=== PATIENT | female | born 1950 | race Caucasian/White ===

== ENCOUNTER → 2016-03-08 | Outpatient (CLI) | payer OTHER ==
[~2016-03-08] MED LIST: ASCO1CAP3 PO; ASPI-232 PO; B-COTAB53 PO; BUPRTAB51 PO; CALC-23 PO; CHOL1CAP57 PO; METO25TA56 PO; MULTTAB PO; OPTIRAY 320 IV PRN; VITA1TAB4 PO
--- NOTE | 2016-03-08 12:59 | DIAGNOSTIC IMAGING REPORT ---
CHEST CT WITH CONTRAST CT DOSE: 236.03 mGy.cm HISTORY: Follow-up paraspinal mass resection. 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 COMPARISON: Chest CT 10/16/2013. FINDINGS: There are surgical clips seen within the left mid to lower thoracic paraspinal location. This is consistent with the patient's history of a resected paraspinal mass. No evidence for recurrent paraspinal lesions. No mediastinal or hilar lymphadenopathy. Small hiatus hernia. The liver and adrenal glands are unremarkable. A few scattered hypodense lesions are again identified within the spleen. Dominant lesion within the posterior aspect of the spleen has slightly decreased in size. This currently measures 8 mm, previous measuring 10 mm. There is a 9 mm hypodense lesion within the anterior spleen has slightly increased in size. There is a new 6 mm hypodense lesion within the splenic dome. These are too small to characterize but favor benign lesions. No pleural or pericardial effusions. The mediastinal vascular structures are within normal limits. No suspicious lytic or blastic osseous lesions. No pneumothorax. The lungs are essentially clear. IMPRESSION: 1. No evidence for recurrent paraspinal mass. 2. Subcentimeter waxing and waning splenic hypodense lesions as described above. These are technically too small to characterize but likely benign. 3. Small hiatal hernia. Electronically signed by: Brandon Garrett M.D. 03/08/2016 12:57 PM
== END | disposition home or self-care (01) ==
LOC: C.CTS 11:51
PROVIDERS: ATTEND Surgery
DX: D36.10 Benign neoplasm of peripheral nerves and autonomic nervous system, unspecified (principal)

== ENCOUNTER → 2016-11-23 | Outpatient (CLI) | payer OTHER ==
[~2016-11-23] MED LIST changes: -OPTIRAY 320 IV PRN
--- NOTE | 2016-11-24 07:44 | MAMMOGRAPHY REPORT ---
BILATERAL DIGITAL SCREENING MAMMOGRAM TOMOSYNTHESIS WITH CAD: 11/23/2016 TECHNIQUE: Breast tomosynthesis in addition to standard 2D mammography was performed. Current study was also evaluated with a Computer Aided Detection (CAD) system. COMPARISON: Comparison is made to exams dated: 11/22/2015 mammogram, 11/19/2014 mammogram, 10/16/2013 m ammogram, 10/22/2012 mammogram, 10/14/2012 mammogram, and 09/04/2011 mammogram - [facility] nter. BREAST COMPOSITION: There are scattered areas of fibroglandular density in both breasts. FINDINGS: No suspicious masses, calcifications, or areas of architectural distortion are noted in ei ther breast. There has been no significant interval change compared to prior exams. A biopsy marker clip is again noted in the left lateral breast. Benign-appearing left breast calcifications are stab le. IMPRESSION: ACR BI-RADS CATEGORY 2: BENIGN There is no mammographic evidence of malignancy. A 1 year screening mammogram is recommended. The pa tient will receive written notification of the results. Approximately 10% of breast cancers are not detected with mammography. A negative mammographic report should not delay biopsy if a clinically suggestive mass is present. Gisela Gamez M.D. /:11/23/2016 16:46:52 [employer]: Edel RICHMOND)(M), [facility] letter sent: Normal 1/2 BI-RADS Code: ACR BI-RADS Category 2: Benign
== END | disposition home or self-care (01) ==
LOC: C.MAMM 11:05
PROVIDERS: ATTEND Obstetrics & Gynecology
DX: Z12.31 Encounter for screening mammogram for malignant neoplasm of breast (principal)

== ENCOUNTER 2021-04-07 13:15 | Observation (INO) ==
[2021-04-07] MEDS ORDERED: ASPIRIN CHEW 324 MG PO STA (13:34)
[2021-04-07] MEDS ORDERED: SODIUM CHLORIDE 0.9% 1000ML 1,000 ML IV STA (13:34)
[2021-04-07 13:46] LABS: Basophils # (auto) 0.02 K/uL (0-0.2); Basophils % (auto) 0.3 %; Eosinophils # (auto) 0.15 K/uL (0-0.5); Eosinophils % (auto) 2.2 %; Hematocrit (blood only) 42.2 % (37-47); Immature Granulocytes # (auto) 0.02 K/uL (0.00-0.02); Immature Granulocytes % (auto) 0.3 %; Lymphocytes # (auto) 1.28 K/uL (1.2-3.4); Lymphocytes % (auto) 18.7 %; Mean Corpuscular Hemoglobin 28.2 pg (25-34); Mean Corpuscular Hgb Conc 33.2 g/dL (32-36); Mean Corpuscular Volume 84.9 fL (80-100); Mean Platelet Volume 9.4 fL (7.4-10.4); Monocytes % (auto) 5.8 %; Neutrophils # (auto) 4.99 K/uL (1.4-6.5); Neutrophils % (auto) 72.7 %; Platelet Count 259 K/uL (130-400); RDW Coefficient of Variation 12.7 % (11.5-14.5); RDW Standard Deviation 38.7 fL (36.4-46.3); Red Blood Count 4.97 M/uL (4.2-5.4); White Blood Count 6.86 K/uL (4.8-10.8)
--- NOTE | 2021-04-07 13:53 | Emergency Department Note ---
History of Present Illness General Chief Complaint: Arrhythmia/Palpitations Stated Complaint: PALIPTATIONS, DIZZY Time Seen by Provider: 04/07/21 13:28 History of Present Illness Provider Complaint: + palpitations Onset (ago): 1 hour(s) Duration: + Intermittent Severity: mild Context: + occurred during exertion Associated symptoms: + shortness of breath and + near-syncope; no syncope, no nausea, no vomiting, no anxiety, no diaphoresis, no cough, no paresthesias or no muscle cramps Home Medications Medication Instructions Recorded Confirmed Type bupropion HCl 150 mg 24 hr tablet, mg PO .TAKE 1 TABLET DAILY. 05/12/20 05/20/20 History extended release calcium-vitamin D3-vitamin K PO 05/12/20 05/20/20 History [Viactiv] metoprolol tartrate 25 mg tablet mg PO .TAKE 1 TABLET DAILY. 05/12/20 05/20/20 H istory multivitamin [One-A-Day Essential] PO 05/12/20 05/20/20 History psyllium [Metamucil (sugar)] PO DAILY 05/20/20 05/20/20 History Allergies Allergy/AdvReac Type Severity Reaction Status Date / Time Penicillins Allergy Intermediate HIVES Verified 05/20/20 11:48 Past Med/Surg History Medical History Cyst of spleen Surgical History History of breast biopsy History of cryosurgery History of dilation and curettage History of thoracotomy Family History Mother Cancer uterine cancer Uterine cancer Grandmother (Paternal) Breast cancer Denies family history of Ovarian cancer Colorectal cancer Social History Smoking Status: Never smoker Preferred Language: Amharic Feels Safe at Home: Yes Review of Systems A total of 10 systems reviewed and were otherwise negative Physical Exam Vital Signs: Vital Signs - 24 hr 04/07/21 13:22 04/07/21 13:23 04/07/21 13:26 Temperature 36.4 C L Temperature Source Oral Pulse Rate 66 72 Pulse Rate [Apical ] 66 Pulse Rhythm Regular Pulse Rhythm [Apic al] Regular Pulse Strength [Ap ical] Normal Respiratory Rate 20 16 Respiratory Effort / Characteristics Non-Labored Sponta neous Respiratory Depth Normal Respiratory Patter n Regular Blood Pressure 144/65 H Blood Pressure [Le ft Arm] 144/65 H Blood Pressure Aiyana n 91 Blood Pressure Aiyana n [Left Arm] 91 Blood Pressure Pos ition Semi-fowlers Blood Pressure Pos ition [Left Arm] Semi-fowlers Pulse Oximetry 96 96 Oxygen Delivery Me thod Room Air Room Air Sepsis Recent Feve r Within 48 Hours No Sepsis New/Unexpla ined Change in Men magdalena Status No Sepsis Action Take n by Nursing No Action Required Physical Exam: Physical Exam GENERAL: She is oriented to person, place, and time. She appears well-developed and well-nourished. She does not appear distressed. HENT: Exam performed. -Head: Normocephalic and atraumatic. -Right Ear: External ear normal. No mastoid tenderness. -Left Ear: External ear normal. No mastoid tenderness. -Mouth/Throat: The oropharynx is clear and moist. No trismus in the jaw. No dental abscesses or uvula swelling. No oropharyngeal exudate or tonsillar abscesses. EYES: Conjunctivae and EOM are normal. Pupils are equal, round, and reactive to light. Right eye exhibits no discharge. Left eye exhibits no discharge. No scleral icterus. NECK: Normal range of motion. Neck supple. No JVD present. No spinous process tenderness present. No carotid bruit present. No rigidity. No tracheal deviation and normal range of motion present. No Brudzinski's sign and no Kernig's sign noted. CV: Normal rate, regular rhythm, normal heart sounds and intact distal pulses. There is no peripheral edema. Palpable radial pulses bue. PULM/CHEST: Effort normal and breath sounds normal. No respiratory distress. No stridor. She has no wheezes. She has no rales. -Chest Wall: She exhibits no tenderness. ABD: The abdomen is soft. Bowel sounds are normal. She has no distension. No mass is present. There is no tenderness. There is no rebound, no guarding, no Rachel's sign and no tenderness at McBurney's point. Rovsig negative MUSC/SKEL: Normal range of motion. There is no peripheral edema, tenderness or deformity. LYMPH: No cervical adenopathy. NEURO: She is alert and oriented to person, place, and time. She has normal strength. No cranial nerve deficit or sensory deficit. Coordination and gait normal. GCS eye subscore is 4. GCS verbal subscore is 5. GCS motor subscore is 6. Cerebellar tests wnl. SKIN: Skin is warm and dry. She is not diaphoretic. PSYCH: She has a normal mood and affect. Behavior is normal. Judgment and thought content normal. Course Course 1321: The patient was evaluated in room A11. A complete history and physical exam was performed Cardiac monitoring: An order was placed for continuous cardiac monitoring. The monitor shows a rate of 60 with sinus rhythm 1517: Vital signs stable. Patient reports no chest pain difficulty breathing or palpitations at this time. Labs are within normal limits with exception of a elevated D-dimer, CTA of the chest was negative. Patient was offered inpatient observation for palpitations and rule out ACS but the patient declined. Patient be discharged with follow-up PCP. DISCHARGE - Plan of care discussed with patient and questions answered. The patient was given both verbal and printed discharge instructions. The patient verbalized understanding and ability to comply. The patient is to seek outpatient follow up as noted in the discharge instructions. The patient verbalized understanding and ability to comply. The patient is discharged in stable condition. The patient was instructed to return for worsening symptoms. Administered Medications Discontinued Medications Aspirin (Aspirin Chew 324 Mg) 324 mg PO NOW STA Stop: 04/07/21 13:35 Last Admin: 04/07/21 13:41 Dose: 324 mg Documented by: [id number] Sodium Chloride (Nss 1000ml) 1,000 mls @ 999 mls/hr IV .Q1H1M STA Stop: 04/07/21 14:34 Last Admin: 04/07/21 13:41 Dose: 999 mls/hr Documented by: [id number] Ioversol (Optiray 320 125ml) 120 ml IV ONCE ONE Stop: 04/07/21 14:36 Last Admin: 04/07/21 14:36 Dose: 120 ml Documented by: [id number] Medical Decision Making Laboratory Data Result diagrams: 04/07/21 13:36 04/07/21 13:36 Lab Results 04/07/21 04/07/21 04/07/21 Range/Units 13:36 13:36 13:36 WBC 6.86 (4.8-10.8) K/uL RBC 4.97 (4.2-5.4) M/uL Hgb 14.0 (12.0-16.0) g/dL Hct 42.2 (37-47) % MCV 84.9 (80-100) fL MCH 28.2 (25-34) pg MCHC 33.2 (32-36) g/dL RDW Std Deviation 38.7 (36.4-46.3) fL RDW Coeff of Jose Daniel 12.7 (11.5-14.5) % Plt Count 259 (130-400) K/uL MPV 9.4 (7.4-10.4) fL Immature Gran % (Auto) 0.3 % Neut % (Auto) 72.7 % Lymph % (Auto) 18.7 % [place] % (Auto) 5.8 % Eos % (Auto) 2.2 % Baso % (Auto) 0.3 % Neut # (Auto) 4.99 (1.4-6.5) K/uL Lymph # (Auto) 1.28 (1.2-3.4) K/uL [place] # (Auto) 0.40 (0.11-0.59) K/uL Eos # (Auto) 0.15 (0-0.5) K/uL Baso # (Auto) 0.02 (0-0.2) K/uL Immature Gran # (Auto) 0.02 (0.00-0.02) K/uL PT 9.7 (9.0-12.0) Seconds INR 1.0 (0.9-1.1) APTT 25.5 (21.0-31.0) Seconds PTT Ratio 1.0 D-Dimer 540 H* (0-500) ug/L FEU Sodium 139 (136-145) mmol/L Potassium 3.9 (3.5-5.1) mmol/L Chloride 108 H (98-107) mmol/L Carbon Dioxide 24 (21-32) mmol/L Anion Gap 7 (3-11) BUN 25 H (6-23) mg/dl Creatinine 0.85 (0.6-1.2) mg/dl Est Cr Clr Drug Dosing 68.3 ml/min Est GFR ( Amer) 80.5 ml/min Est GFR (Non-Af Amer) 69.4 ml/min BUN/Creatinine Ratio 29.4 H (10-20) Glucose 85 (70-99(Fasting)) mg/dl Calcium 9.0 (8.5-10.1) mg/dl Troponin I < 0.03 (0-0.04) ng/ml Lipase 47 (11-82) U/L Imaging Data Radiologist's Impression: Chest X-Ray 04/07/21 13:35 XR chest 1V portable HISTORY: 70 years-old Female Chest Pain . Acute atypical chest pain with possible cardiac arrhythmia COMPARISON: Chest CT 03/08/2016, chest radiographs 08/24/2012 TECHNIQUE: Portable AP view of the chest FINDINGS: The cardiac silhouette is enlarged is enlarged. Mild chronic interstitial coarsening of the lung bases. No pneumothorax, pleural effusion, airspace consolidation or overt pulmonary edema. The bones appear grossly intact. IMPRESSION: 1. Cardiomegaly without acute process. 2. Mild chronic interstitial coarsening of the lung bases. ACT 112: Negative or not required by law. The above report was generated using voice recognition software. It may contain grammatical, syntax or spelling errors. Electronically signed by: Abdifatah Garnica M.D. 04/07/2021 2:03 PM Chest CTA 04/07/21 14:15 CT ANGIOGRAM OF THE CHEST CLINICAL HISTORY: Palpitations and dizziness. Dyspnea. COMPARISON STUDY: Chest x-ray dated 04/07/2021. Chest CT dated 03/08/2016. TECHNIQUE: Following the IV administration of 120 cc of Optiray 320, CT angiogram of the chest was performed from the upper abdomen to the thoracic inlet utilizing the pulmonary embolus protocol. Images are reviewed in the axial, sagittal, and coronal planes. 3-D MIPS images are created and assessed. IV contrast was administered without complication. A dose lowering technique was utilized adhering to the principles of ALARA. CT DOSE: 281.12 mGy.cm FINDINGS: Thyroid: Imaged portions of the thyroid gland are normal in size and attenuation. Thoracic aorta: The thoracic aorta is normal in caliber and demonstrates standard 3-vessel arch anatomy. No dissection is seen. Pulmonary vasculature: The pulmonary trunk is normal in caliber. There are no filling defects identified in main, lobar, or segmental pulmonary branches to suggest pulmonary embolus. Heart: The heart is enlarged and without pericardial effusion. Lungs and pleural spaces: Postoperative change is noted in the left paravertebral soft tissues. Evaluation of the lung parenchyma is degraded by motion artifact. The trachea and central airways are clear. There is no airspace consolidation typical for pneumonia or pleural effusion. Dependent atelectasis is seen bilaterally. Mediastinum: There is no mediastinal lymphadenopathy. Leeanne: Clear. Axillae: There is no axillary lymphadenopathy. Upper abdomen: There is a small hiatal hernia. Partially visualized upper abdominal viscera is otherwise within normal limits. Skeletal structures: The skeletal structures are osteopenic. There is a chronic appearing compression deformity of T7. There is chronic deformity of the left posterior ribs. No lytic or blastic bony lesions are seen. IMPRESSION: 1. There is no evidence of pulmonary embolus in the main, lobar, or segmental pulmonary arteries. 2. Cardiomegaly. 3. There is no airspace consolidation or pleural effusion. 4. Additional findings as above. ACT 112: Negative or not required by law. Electronically signed by: Dex Bui M.D. 04/07/2021 2:56 PM ECG Data Indication: palpitations Rate (beats per minute): 63 Rhythm: normal sinus Findings: no ST depression, no ST elevation or no prolonged QT MDM Narrative Vital signs stable. Patient reports no chest pain difficulty breathing or palpitations at this time. Labs are within normal limits with exception of a elevated D-dimer, CTA of the chest was negative. Patient was offered inpatient observation for palpitations and rule out ACS but the patient declined. Patient be discharged with follow-up PCP. DISCHARGE - Plan of care discussed with patient and questions answered. The patient was given both verbal and printed discharge instructions. The patient verbalized understanding and ability to comply. The patient is to seek outpatient follow up as noted in the discharge instructions. The patient verbalized understanding and ability to comply. The patient is discharged in stable condition. The patient was instructed to return for worsening symptoms. Impression & Plan Palpitations Discharge Plan Visit Data Chief Complaint: Arrhythmia/Palpitations Stated Complaint: PALIPTATIONS, DIZZY ED Provider: Howard Watt Discharge Problem: Palpitations Patient Disposition: Home - Self-Care Discharge Instructions Rajesh/Other Patient Handouts: ED Palpitations Forms Stand Alone Forms: [facility], Virtual Emergency Department, Important Visit Information Prescriptions Prescriptions: No Action metoprolol tartrate 25 mg tablet PO .TAKE 1 TABLET DAILY. RF: 0 bupropion HCl 150 mg tablet extended release 24 hr PO .TAKE 1 TABLET DAILY. RF: 0 calcium-vitamin D3-vitamin K PO RF: 0 multivitamin PO RF: 0 psyllium PO DAILY RF: 0 Referrals Referrals: Freda Jackson MD [Primary Care Provider] - (Follow-up in 1-7 days.)
[2021-04-07 13:56] LABS: Partial Thromboplastin Time 25.5 Seconds (21.0-31.0); Prothrombin Time 9.7 Seconds (9.0-12.0)
[2021-04-07 13:59] LABS: D Dimer 540 ug/L FEU (0-500)
--- NOTE | 2021-04-07 14:04 | XRay Report ---
XR chest 1V portable HISTORY: 70 years-old Female Chest Pain . Acute atypical chest pain with possible cardiac arrhythmia COMPARISON: Chest CT 03/08/2016, chest radiographs 08/24/2012 TECHNIQUE: Portable AP view of the chest FINDINGS: The cardiac silhouette is enlarged is enlarged. Mild chronic interstitial coarsening of the lung base s. No pneumothorax, pleural effusion, airspace consolidation or overt pulmonary edema. The bones appe ar grossly intact. IMPRESSION: 1. Cardiomegaly without acute process. 2. Mild chronic interstitial coarsening of the lung bases. ACT 112: Negative or not required by law. The above report was generated using voice recognition software. It may contain grammatical, syntax o r spelling errors. Electronically signed by: Abdifatah Garnica M.D. 04/07/2021 2:03 PM
[2021-04-07 14:10] LABS: Troponin I < 0.03 ng/ml (0-0.04)
[2021-04-07 14:16] LABS: Anion Gap 7 (3-11); BUN Creatinine Ratio 29.4 (10-20); Blood Urea Nitrogen 25 mg/dl (6-23); Carbon Dioxide 24 mmol/L (21-32); Chloride 108 mmol/L (98-107); Creatinine Clr Calc Pharmacy 68.3 ml/min; Est GFR (African American) 80.5 ml/min; Est GFR (Non-African American) 69.4 ml/min; Glucose 85 mg/dl (70-99(Fasting)); Lipase 47 U/L (11-82); Potassium 3.9 mmol/L (3.5-5.1); Sodium 139 mmol/L (136-145)
[2021-04-07] MEDS ORDERED: OPTIRAY 320 125ml IV ONE (14:35)
--- NOTE | 2021-04-07 14:57 | CT Scan Report ---
CT ANGIOGRAM OF THE CHEST CLINICAL HISTORY: Palpitations and dizziness. Dyspnea. COMPARISON STUDY: Chest x-ray dated 04/07/2021. Chest CT dated 03/08/2016. TECHNIQUE: Following the IV administration of 120 cc of Optiray 320, CT angiogram of the chest was pe rformed from the upper abdomen to the thoracic inlet utilizing the pulmonary embolus protocol. Images are reviewed in the axial, sagittal, and coronal planes. 3-D MIPS images are created and assessed. I V contrast was administered without complication. A dose lowering technique was utilized adhering to the principles of ALARA. CT DOSE: 281.12 mGy.cm FINDINGS: Thyroid: Imaged portions of the thyroid gland are normal in size and attenuation. Thoracic aorta: The thoracic aorta is normal in caliber and demonstrates standard 3-vessel arch anato my. No dissection is seen. Pulmonary vasculature: The pulmonary trunk is normal in caliber. There are no filling defects identif ied in main, lobar, or segmental pulmonary branches to suggest pulmonary embolus. Heart: The heart is enlarged and without pericardial effusion. Lungs and pleural spaces: Postoperative change is noted in the left paravertebral soft tissues. Evalu ation of the lung parenchyma is degraded by motion artifact. The trachea and central airways are katiana r. There is no airspace consolidation typical for pneumonia or pleural effusion. Dependent atelectasi s is seen bilaterally. Mediastinum: There is no mediastinal lymphadenopathy. Leeanne: Clear. Axillae: There is no axillary lymphadenopathy. Upper abdomen: There is a small hiatal hernia. Partially visualized upper abdominal viscera is otherw ise within normal limits. Skeletal structures: The skeletal structures are osteopenic. There is a chronic appearing compression deformity of T7. There is chronic deformity of the left posterior ribs. No lytic or blastic bony les ions are seen. IMPRESSION: 1. There is no evidence of pulmonary embolus in the main, lobar, or segmental pulmonary arteries. 2. Cardiomegaly. 3. There is no airspace consolidation or pleural effusion. 4. Additional findings as above. ACT 112: Negative or not required by law. Electronically signed by: Dex Bui M.D. 04/07/2021 2:56 PM
[2021-04-07] MEDS ORDERED: NITROGLYCERIN SL 0.4 MG/TAB TAB SL STA ×2 (16:04→16:50)
[2021-04-07] MEDS ORDERED: SODIUM CHLORIDE 0.9% 1000ML 1,000 ML IV SCH (16:15)
[2021-04-07] MEDS ORDERED: STAT IV Infusion **Titration per Protocol STA (16:17)
[2021-04-07] MEDS ORDERED: dilTIAZem HCL 125 MG in DEXTROSE 5% 100 ML IV SCH (16:30)
--- NOTE | 2021-04-07 16:42 | History & Physical Report ---
Date of Service April 07, 2021 Assessment & Plan (1) Atrial fibrillation with RVR: Plan: TSH and magnesium level pending Trend troponins TTE [id number] 2 -recommend anticoagulation with Eliquis 5 mg p.o. twice daily Continue metoprolol tartrate will increase dose of to 25 mg every 6 hourly and try to wean off diltiazem drip. Admission and Anticipated Discharge Date Admission Date: April 07, 2021 History of Present Illness Chief Complaint: Palpitations Primary Care Provider: Freda Jackson MD Xochitl Dill is a 70 year old female who presents to the ER with palpitations. She reports 1 hour of intermittent palpitations with associated dizziness, chest discomfort but not pain and shortness of breath. She was initially asymptomatic while in the ER but as she was being discharged she started having chest discomfort again and she was given SL nitroglycerin and referred to medicine for chest pain rule out [place]. While waiting to be seen she developed paroxysmal atrial fibrillation on the monitor with a rate of 140 and was started on a diltiazem IV drip @ 5mg/hr. She took her home 25mg PO of metoprolol earlier today. She takes metoprolol for a history of palpitations but no known atrial fibrillation. She is currently having mild symptoms of palpitations, chest discomfort despite the majority of her rhythm in NSR. Allergies Allergy/AdvReac Type Severity Reaction Status Date / Time Penicillins Allergy Intermediate HIVES Verified 04/07/21 17:36 Home Medications Medication Instructions Recorded Confirmed Type apple cider vinegar 300 mg tablet 0 mg PO DAILY 04/07/21 04/07/21 History bupropion HCl 150 mg 24 hr tablet, 150 mg PO DAILY 04/07/21 04/07/21 History extended release calcium-vitamin D3-vitamin K 500 1 tab PO DAILY 04/07/21 04/07/21 History mg-100 unit-40 mcg chewable tablet metoprolol tartrate 25 mg tablet 25 mg PO DAILY #20 tab 04/07/21 Rx multivitamin 1 tab PO DAILY 04/07/21 04/07/21 History peppermint oil 90 mg 90 mg PO DAILY 04/07/21 04/07/21 History capsule,delayed,extended release (IBgard) Past Med/Surg History Medical History Cyst of spleen Surgical History History of breast biopsy History of cryosurgery History of dilation and curettage History of thoracotomy Family History Mother Cancer uterine cancer Uterine cancer Grandmother (Paternal) Breast cancer Denies family history of Ovarian cancer Colorectal cancer Social History Smoking Status: Never smoker Preferred Language: Vietnamese Feels Safe at Home: Yes Review of Systems Review of Systems: All systems reviewed & are unremarkable except as noted in HPI & below Physical Exam Constitutional: WD/WN, vitals as above Eyes: + anicteric sclerae; normal pupil size ENMT: external ear and nose normal, oropharynx normal Respiratory: normal respiratory effort, lungs clear to auscultation Cardiovascular: Rate/Rhythm: regular rate and + irregularly irregular Heart Sounds: no murmur Extremities: normal capillary refill; no calf tenderness and no pedal edema Gastrointestinal (Abdomen): normal bowel sounds, soft, nontender, no hepatosplenomegaly Skin: no rashes, warm and dry Neurologic: moves all extremities and awake; not confused Psychiatric: A+Ox3, euthymic affect Results & Data Results [facility] Vital Signs (Past 12 Hours) Vital Signs Temp Pulse Pulse Resp BP BP Pulse Ox 04/07/21 15:00 65 21 137/77 99 04/07/21 14:42 111 H 30 H 120/79 95 04/07/21 14:41 77 19 04/07/21 14:00 61 16 146/71 H 96 04/07/21 13:30 64 22 160/79 H 04/07/21 13:26 72 66 16 144/65 H 96 04/07/21 13:23 36.4 C L 66 20 144/65 H 04/07/21 13:22 96 Laboratory Results Abnormal lab results 04/07/21 04/07/21 Range/Units 13:36 13:36 D-Dimer 540 H* (0-500) ug/L FEU Chloride 108 H (98-107) mmol/L BUN 25 H (6-23) mg/dl BUN/Creatinine Ratio 29.4 H (10-20) Diagnostic Findings XR chest 1V portable HISTORY: 70 years-old Female Chest Pain . Acute atypical chest pain with possible cardiac arrhythmia COMPARISON: Chest CT 03/08/2016, chest radiographs 08/24/2012 TECHNIQUE: Portable AP view of the chest FINDINGS: The cardiac silhouette is enlarged is enlarged. Mild chronic interstitial coarsening of the lung bases. No pneumothorax, pleural effusion, airspace consolidation or overt pulmonary edema. The bones appear grossly intact. IMPRESSION: 1. Cardiomegaly without acute process. 2. Mild chronic interstitial coarsening of the lung bases. CT ANGIOGRAM OF THE CHEST CLINICAL HISTORY: Palpitations and dizziness. Dyspnea. COMPARISON STUDY: Chest x-ray dated 04/07/2021. Chest CT dated 03/08/2016. TECHNIQUE: Following the IV administration of 120 cc of Optiray 320, CT angiogram of the chest was performed from the upper abdomen to the thoracic inlet utilizing the pulmonary embolus protocol. Images are reviewed in the axial, sagittal, and coronal planes. 3-D MIPS images are created and assessed. IV contrast was administered without complication. A dose lowering technique was utilized adhering to the principles of ALARA. CT DOSE: 281.12 mGy.cm FINDINGS: Thyroid: Imaged portions of the thyroid gland are normal in size and attenuation. Thoracic aorta: The thoracic aorta is normal in caliber and demonstrates standard 3-vessel arch anatomy. No dissection is seen. Pulmonary vasculature: The pulmonary trunk is normal in caliber. There are no filling defects identified in main, lobar, or segmental pulmonary branches to suggest pulmonary embolus. Heart: The heart is enlarged and without pericardial effusion. Lungs and pleural spaces: Postoperative change is noted in the left paravertebral soft tissues. Evaluation of the lung parenchyma is degraded by motion artifact. The trachea and central airways are clear. There is no airspace consolidation typical for pneumonia or pleural effusion. Dependent atelectasis is seen bilaterally. Mediastinum: There is no mediastinal lymphadenopathy. Leeanne: Clear. Axillae: There is no axillary lymphadenopathy. Upper abdomen: There is a small hiatal hernia. Partially visualized upper abdominal viscera is otherwise within normal limits. Skeletal structures: The skeletal structures are osteopenic. There is a chronic appearing compression deformity of T7. There is chronic deformity of the left posterior ribs. No lytic or blastic bony lesions are seen. IMPRESSION: 1. There is no evidence of pulmonary embolus in the main, lobar, or segmental pu lmonary arteries. 2. Cardiomegaly. 3. There is no airspace consolidation or pleural effusion. 4. Additional findings as above. Medications Administered ER medications given: Aspirin 324 mg p.o. NSS 1 hour bolus Nitroglycerin 0.4 mg sublingual NSS at 125 mils per hour Diltiazem 5 mg/hr ECG Additional Comments: x3 ER EKGs reviewed: Initially in NSR, left axis deviation, no acute ischemic changes present Sinus rhythm with PACs Atrial fibrillation with RVR, nonspecific ST abnormality Code Status & VTE Plan Code Status Full VTE Prophylaxis Plan VTE Prophylaxis will be ordered: Yes PG Care Time/CCT Total # of Minutes Spent Total Time Spent with Patient: Total time spent is greater than 50% in coordination of care (as documented) at patient's floor/unit and/or counseling patient: Coding Level of Care Code 32820 Initial Inpt Care Lvl 2 Diagnoses Atrial fibrillation with RVR I48.91
[2021-04-07] MEDS ORDERED: POLYETHYLENE (MIRALAX) 17 GM PACK PO PRN (18:58)
[2021-04-07] MEDS ORDERED: ACETAMINOPHEN 325 MG TAB PO PRN (18:58)
[2021-04-07] MEDS ORDERED: ONDANSETRON INJ 2 MG/ML 2 ML VIAL IV PRN (18:58)
[2021-04-07] MEDS: METOPROLOL TARTRATE 25 MG TAB PO SCH (19:39)
[2021-04-07] MEDS: APIXABAN 5 MG TABLET PO SCH (20:56)
[2021-04-08] MEDS: METOPROLOL TARTRATE 25 MG TAB PO SCH ×3 (02:00→14:54)
[2021-04-08 06:58] LABS: Basophils # (auto) 0.03 K/uL (0-0.2); Basophils % (auto) 0.5 %; Eosinophils # (auto) 0.28 K/uL (0-0.5); Eosinophils % (auto) 5.1 %; Hematocrit (blood only) 40.1 % (37-47); Hemoglobin 13.1 g/dL (12.0-16.0); Immature Granulocytes # (auto) 0.01 K/uL (0.00-0.02); Immature Granulocytes % (auto) 0.2 %; Lymphocytes # (auto) 1.62 K/uL (1.2-3.4); Lymphocytes % (auto) 29.3 %; Mean Corpuscular Hemoglobin 27.8 pg (25-34); Mean Corpuscular Hgb Conc 32.7 g/dL (32-36); Mean Platelet Volume 9.3 fL (7.4-10.4); Monocytes # (auto) 0.54 K/uL (0.11-0.59); Monocytes % (auto) 9.8 %; Neutrophils # (auto) 3.05 K/uL (1.4-6.5); Neutrophils % (auto) 55.1 %; Platelet Count 233 K/uL (130-400); RDW Coefficient of Variation 12.8 % (11.5-14.5); RDW Standard Deviation 39.5 fL (36.4-46.3); Red Blood Count 4.72 M/uL (4.2-5.4); White Blood Count 5.53 K/uL (4.8-10.8)
--- NOTE | 2021-04-08 06:58 | Electrocardiogram Report ---
Test Reason : Blood Pressure : / mmHG Vent. Rate : 063 BPM Atrial Rate : 063 BPM P-R Int : 170 ms QRS Dur : 094 ms QT Int : 404 ms P-R-T Axes : 064 -30 045 degrees QTc Int : 413 ms Normal sinus rhythm Left axis deviation Abnormal ECG When compared with ECG of 12-AUG-2012 12:15, RSR' pattern in V1 is no longer Present Confirmed by Joaquin Nicholson ([id number]) on 04/08/2021 6:58:16 AM Referred By: Confirmed By:Joaquin Nicholson
[2021-04-08 07:36] LABS: Troponin I < 0.03 ng/ml (0-0.04)
[2021-04-08 08:09] LABS: Anion Gap 5 (3-11); BUN Creatinine Ratio 23.3 (10-20); Blood Urea Nitrogen 20 mg/dl (6-23); Calcium 8.4 mg/dl (8.5-10.1); Carbon Dioxide 24 mmol/L (21-32); Chloride 111 mmol/L (98-107); Creatinine Clr Calc Pharmacy 67.5 ml/min; Est GFR (African American) 79.3 ml/min; Est GFR (Non-African American) 68.4 ml/min; Glucose 89 mg/dl (70-99(Fasting)); Potassium 3.8 mmol/L (3.5-5.1); Sodium 140 mmol/L (136-145)
--- NOTE | 2021-04-08 08:24 | Hospitalist Progress Note ---
Date of Service April 08, 2021 Assessment & Plan (1) Palpitations: Plan: Xochitl Dill is a 70-year-old female who presented to the hospital with palpitations, dizziness, and chest discomfort without shortness of breath. She was found to be in paroxysmal A. fib with RVR. She was admitted for cardiac evaluation and A. fib with RVR. She has a history of palpitations with no known history of A. fib, takes metoprolol at home which she did take morning of admission. ? SVT versus A. fib with RVR Initial EKG: Sinus, repeat EKG with conversion to rapid rhythm initially read as A. fib but suspicious for SVT Telemetry review: TTE: Pending, troponin negative x3 Placed on diltiazem drip overnight with good rate control, returned to sinus rhythm On metoprolol 25 mg p.o. every 6 hours only tolerated well Started on apixaban 5 mg p.o. twice daily Chads 2 vascular of 2, initially placed on anticoagulation with DOAC as above. With score of 2 and concern that is actually SVT back in sinus may consider holding anticoagulation and follow-up with outpatient event monitor Hemoglobin normal Potassium 3.8, magnesium 2.0 Creatinine at baseline Covid negative CTA: No evidence of PE. Cardiomegaly. No airspace consolidation or pleural effusion. CXR: Cardiomegaly without acute process, mild interstitial coarsening at the bases (2) Atrial fibrillation with RVR: Plan: - As above, vs SVT Admission and Anticipated Discharge Date Admission Date: April 07, 2021 Results & Data Results & Data ([facility]) Vital Signs (Past 12 Hours) Vital Signs Pulse Pulse Resp BP BP Pulse Ox Pulse Ox 04/08/21 04:21 63 21 120/58 L 97 97 04/08/21 02:15 56 L 12 103/51 L 94 04/08/21 02:00 57 L 14 105/57 L 96 04/08/21 01:45 58 L 13 115/54 L 96 04/08/21 01:30 57 L 17 113/57 L 96 04/08/21 01:15 57 L 14 115/60 97 04/08/21 01:00 57 L 15 118/55 L 97 04/08/21 00:45 55 L 15 115/57 L 96 04/08/21 00:30 55 L 16 113/63 97 04/08/21 00:15 59 L 14 122/66 97 04/08/21 00:00 56 L 18 125/56 L 97 04/07/21 23:52 57 L 20 101/80 97 04/07/21 23:15 58 L 20 114/61 95 04/07/21 23:00 58 L 16 114/71 96 04/07/21 22:45 57 L 26 H 113/59 L 95 04/07/21 22:30 55 L 19 114/63 96 04/07/21 22:15 55 L 19 102/50 L 95 04/07/21 22:00 58 L 16 101/48 L 96 04/07/21 21:45 56 L 21 101/52 L 96 04/07/21 21:30 55 L 21 113/61 96 04/07/21 20:45 60 18 94/50 L 95 PG Care Time/CCT Total # of Minutes Spent Total Time Spent with Patient: Total time spent is greater than 50% in coordination of care (as documented) at patient's floor/unit and/or counseling patient: Coding Diagnoses Atrial fibrillation with RVR I48.91 Palpitations R00.2
[2021-04-08] MEDS: APIXABAN 5 MG TABLET PO SCH (10:11)
--- NOTE | 2021-04-08 10:32 | XCELERA ---
[id number]
--- NOTE | 2021-04-08 13:46 | Ultrasound Report ---
US venous doppler LE BI CLINICAL HISTORY: Bilateral ankle swelling COMPARISON: None available at the time of this dictation. TECHNIQUE: Bilateral lower extremity real-time compression venous ultrasound with Color Doppler imagi ng. Utilizing real-time ultrasonic imaging multiple real time high-resolution ultrasonic images with comp ression and noncompression maneuvers of the deep venous system in addition to color doppler imaging w ere performed from the common femoral vein through the proximal calf veins. FINDINGS: Currently there is normal compressibility of the deep venous system from the common femoral vein thro ugh the proximal calf veins. No current evidence of acute thrombosis is identified. Impression: No evidence of deep venous thrombus. ACT 112: Negative or not required by law. Electronically signed by: Stevie Le M.D. 04/08/2021 1:45 PM
--- NOTE | 2021-04-08 13:50 | Electrocardiogram Report ---
Test Reason : Blood Pressure : / mmHG Vent. Rate : 098 BPM Atrial Rate : 098 BPM P-R Int : 170 ms QRS Dur : 094 ms QT Int : 378 ms P-R-T Axes : 062 -27 064 degrees QTc Int : 482 ms Sinus rhythm with Premature atrial complexes Incomplete right bundle branch block Borderline ECG When compared with ECG of 07-APR-2021 13:24, Premature atrial complexes are now Present Vent. rate has increased BY 35 BPM QT has lengthened Confirmed by José Lius Salinas ([id number]) on 04/08/2021 1:50:18 PM Referred By: REFERRED SELF Confirmed By:José Luis Salinas
--- NOTE | 2021-04-08 13:53 | Electrocardiogram Report ---
Test Reason : Blood Pressure : / mmHG Vent. Rate : 132 BPM Atrial Rate : 187 BPM P-R Int : 000 ms QRS Dur : 078 ms QT Int : 254 ms P-R-T Axes : 000 -34 072 degrees QTc Int : 376 ms Normal sinus rhythm transforming into a supraventricular tachycardia Left axis deviation Nonspecific ST and T wave abnormality Abnormal ECG When compared with ECG of 07-APR-2021 16:00, (unconfirmed) Supraventricular tachycardia now present Confirmed by José Luis Salinas ([id number]) on 04/08/2021 1:53:11 PM Referred By: REFERRED SELF Confirmed By:José Luis Salinas
--- NOTE | 2021-04-08 19:37 | Discharge Summary ---
Date of Service April 08, 2021 Admission HPI Per Admitting Provider Xochitl Dill is a 70 year old female who presents to the ER with palpitations. She reports 1 hour of intermittent palpitations with associated dizziness, chest discomfort but not pain and shortness of breath. She was initially asymptomatic while in the ER but as she was being discharged she started having chest discomfort again and she was given SL nitroglycerin and referred to medicine for chest pain rule out [place]. While waiting to be seen she developed paroxysmal atrial fibrillation on the monitor with a rate of 140 and was started on a diltiazem IV drip @ 5mg/hr. She took her home 25mg PO of metoprolol earlier today. She takes metoprolol for a history of palpitations but no known atrial fibrillation. She is currently having mild symptoms of palpitations, chest discomfort despite the majority of her rhythm in NSR. Principal Diagnosis SVT Discharge Exam General: A&Ox3. NAD. Cooperative. HEENT: Atraumatic, normocephalic. Visual acuity and hearing grossly intact Pulm: CTAB A&P. -wheezes, -rales, -rhonchi. Symmetrical chest rise. No increase in work of breathing. No respiratory distress. Cardiac: RRR, -mrg. No displaced PMI. Radial pulses intact and symmetrical. Abdominal: Nontender, nondistended, soft. BS present. Extremities: Warm and dry, moving all extremities equally with good strength. Discharge Data Allergies Allergy/AdvReac Type Severity Reaction Status Date / Time Penicillins Allergy Intermediate HIVES Verified 04/07/21 17:36 Consultations 04/07/21 16:19 ED Decision to Admit Stat Ordered Studies 04/07/21 14:15 CT angio chest PE protocol Stat 04/08/21 11:44 US venous doppler [facility] Urgent Hospital Course (1) Palpitations: Xochitl Dill is a 70-year-old female who presented to the hospital with palpitations, dizziness, and chest discomfort without shortness of breath. She was found to be in paroxysmal A. fib with RVR. She was admitted for cardiac evaluation and A. fib with RVR. She has a history of palpitations with no known history of A. fib, takes metoprolol at home which she did take morning of admission. On review of telemetry patient did have P waves with a rhythm, and her rapid rate does appear to be consistent with SVT which she has had before. Irregularity noted on monitor was reviewed, P waves are present and suggestive of PACs. At time of discharge due to review of both EKGs, normal sinus rhythm at discharge, and telemetry with P waves and inconsistent with A. fib/RVR patient was counseled and not recommended to continue anticoagulation. She does have a history of SVT for which she has been followed by [place] [facility] and they have considered ablation and interventions in the past. A close follow-up appointment with them on 04/18/2021 was recommended. Strict return precautions. Metoprolol was increased. She did have a trace elevation of her D-dimer during admission, CTPE protocol did not show any abnormalities or clot, bilateral lower extremity Doppler were normal and did not show evidence of DVT To do as outpatient: 1. Follow-up with cardiology for SVT. 2. Continue metoprolol, dose increased on discharge 25 mg twice daily 3. If any recurrent/worsening symptoms patient will attempt vagal maneuver one- time, then represent for evaluation as long as hemodynamically stable SVT, initial concern for A. fib Initial EKG: Sinus, repeat EKG with conversion to rapid rhythm initially read as A. fib but with P waves prior to entry and added on telemetry on rhythm after resolved consistent with SVT. Telemetry review: SVT TTE:, EF 60-65%, normal LV SF. No regional wall motion abnormalities, troponin negative x3 Placed on diltiazem drip overnight with good rate control, rapid rhythm terminated into NSR On metoprolol 25 mg p.o. every 6 hours only tolerated well On admission was initially started on apixaban 5 mg p.o. twice daily actually for concern of irregularity in rhythm, on review this appeared to be PACs. Patient was scheduled for follow-up with cardiology, and if concern for A. fib is appreciated on follow-up would revisit at that time, or consider a event monitor for further characterization. Hemoglobin normal Potassium 3.8, magnesium 2.0 Creatinine at baseline Covid negative CTA: No evidence of PE. Cardiomegaly. No airspace consolidation or pleural effusion. CXR: Cardiomegaly without acute process, mild interstitial coarsening at the bases (2) Atrial fibrillation with RVR: - As above, vs SVT Total Time Total Time Spent Total Time Spent (In Minutes): Time spend day of discharge 65minutes including direct patient care, documentation, review of labs and images, and coordination of care. Discharge Plan Discharge Items Patient Disposition: Home - Self-Care Reason For Visit: ATRIAL FIBRILLATION WITH RVR Discharge Diagnosis: SVT Activity: Per Instructions section Non-emergency contact: Primary Care Provider and Acoustic Intelligence Specialist Call non-emergency contact if: you have any medication questions Follow-up/Referrals: Danette Castro DO [Outside Practitioners] - 04/18/21 9:00 am Freda Jackson MD [Primary Care Provider] - Diet: Regular Addtl Attending Provider Instructions: You are seen in the hospital for a very fast heart rhythm. This was initially concerning for atrial fibrillation which increases risk of stroke and a blood thinner was recommended. On close review of your heart rhythm your rhythm actually appeared to be SVT (supraventricular tachycardia) which you have had previously. Some people are predisposed to this rhythm due to a bundle of fibers in the heart. You have discussed potential ablation with your instant print operator in [place] previously. In order to help prevent recurrence of this rhythm your metoprolol has been increased as below. A follow-up appointment with your instant print operator has been scheduled as above. As no evidence of A. fib was appreciated on close review of your rhythm, anticoagulation was not re commended at time of discharge however you should follow up with your instant print operator for additional recommendations. SVT can recur for some patients, if you experience return/worsening of your symptoms please call your instant print operator office or call 911 for reevaluation in the emergency department if your symptoms are severe/you are very concerned. You had a blood marker that was slightly high, as a result you were checked for blood clots which can also provoke SVT. A CAT scan of your chest did not show any evidence of blood clots in the lung (pulmonary embolism), and ultrasounds of your legs did not show any evidence of blood clots. Your dose of metoprolol has been changed. Please take metoprolol tartrate 25 mg by mouth twice daily. This medication can lower blood pressure which can cause dizziness and lightheadedness. If you experience low blood pressure, lightheadedness, dizziness or other symptoms please contact your primary care provider or presents for evaluation as noted below. If you develop any new or worsening symptoms including fever, chills, sweats, chest pain, chest pressure, difficulty breathing, uncontrolled nausea/vomiting, rash, wheezing, passing out or nearly passing out, bleeding, black/bloody bowel movements, or other new or concerning symptoms please call your primary care physician, or call 911 for re-evaluation in the emergency department if you are very concerned. Pending Studies at Discharge: No Stand-Alone Forms: My [facility] Prixing, Smoking Cessation Medications and DC Order Prescriptions: New metoprolol tartrate 25 mg tablet 25 mg PO Q12H Qty: 60 RF: 0 Continued bupropion HCl 150 mg tablet extended release 24 hr 150 mg PO DAILY RF: 0 multivitamin Tablet 1 tab PO DAILY RF: 0 calcium-vitamin D3-vitamin K 500-100-40 mg-unit-mcg Tablet,Chewable 1 tab PO DAILY RF: 0 apple cider vinegar 300 mg Tablet 0 mg PO DAILY RF: 0 IBgard 90 mg Capsule,Delayed,Extend.Release 90 mg PO DAILY RF: 0 Discharge Orders: Discharge Order (Routine); Ordered 04/08/21 Ordered By: El Driver Admission Data Admit Date/Time: 04/07/21 18:21 Attending Provider: El Driver Admit Provider: Arnie Fraser Primary Care Provider: Freda Jackson Other Providers: Arnie Fraser Other Interventions: Discharge Summary Assessment (RN) Last Done: 04/08/21 16:10 Coding Level of Care Code D/C DAY MANAGEMENT >30 MINS Diagnoses Palpitations R00.2 Atrial fibrillation with RVR I48.91
--- NOTE | 2021-05-24 10:59 | Coding Query ---
A supporting diagnosis is required for the test/procedure performed on this patient in order for us to be reimbursed by the patient's insurance. Please provide a supporting diagnosis for the following test/procedure listed below next to the test name along with your signature. *If there is no additional diagnosis for this patient that would support the following test/procedure please document that below next to the test/procedure. Test(s)/Procedure(s) that require a supporting diagnosis: VENOUS DOPPLER LOWER EXT BILAT DIAGNOSIS:R22.43 Localized Swelling; R06.02 Shortness of Breath During admission patient did report lower extremity swelling with associated shortness of breath. Venous Dopplers were obtained for evaluation of potential DVT. Provider Signature: Date: El Driver MD 05/24/21 Thank you Anusha Roberts [employer] Once completed, please kindly fax back to [phone] For questions please call [phone] MICHELLE
== END 2021-04-08 16:12 | disposition home or self-care (01) ==
LOC: EDINP 13:15 → ED 13:15 → EDINP 18:11 → SUATTDRO 18:21